=== PATIENT | male | born 1990 | race American Indian/Alaskan Native ===

== ENCOUNTER 2017-10-27 17:23 | Emergency (ER) | payer OTHER ==
[2017-10-27 18:36] VITALS: BP 151/81
--- NOTE | 2017-10-27 20:07 | XRay Report ---
FINAL REPORT PROCEDURE: XR FOOT 3+V LT TECHNIQUE: Three views the left foot are obtained HISTORY: left foot pain dropped heavy object on foot COMPARISON: No prior studies are available for comparison. FINDINGS: Soft tissue swelling is seen. There is no fracture or dislocation. No arthritic changes are seen. IMPRESSION: No fracture is seen.
== END 2017-10-27 20:55 | disposition left against medical advice (07) ==
LOC: ED 17:23
DX: M79.672 Pain in left foot (principal); Z53.21 Procedure and treatment not carried out due to patient leaving prior to being seen by health care provider

== ENCOUNTER 2018-05-27 20:31 | Emergency (ER) | payer SELFPAY ==
[2018-05-27 21:01] VITALS: BP 151/92
[2018-05-27] MEDS ORDERED: ASPIRIN PO ONE (21:01)
== END 2018-05-27 21:00 | disposition left against medical advice (07) ==
LOC: ED 20:31
DX: R42 Dizziness and giddiness (principal); Z53.21 Procedure and treatment not carried out due to patient leaving prior to being seen by health care provider

== ENCOUNTER 2022-06-19 22:43 | Emergency (ER) | payer SELFPAY ==
[2022-06-20 08:11] LABS: Basophils # (Auto) 0.1 K/mm3 (0.0-0.1); Basophils % (Auto) 0.8 % (0.0-1.8); Eosinophils # (Auto) 0.2 K/mm3 (0.0-0.4); Eosinophils % (Auto) 2.4 % (0.0-4.3); Hematocrit 54.7 % (35.5-45.6); Lymphocytes # (Auto) 2.3 K/mm3 (1.2-5.4); Lymphocytes % (Auto) 31.3 % (13.4-35.0); Mean Corpuscular HGB Conc 33 % (32-34); Mean Corpuscular Volume 86 fl (84-94); Monocytes # (Auto) 0.7 K/mm3 (0.0-0.8); Monocytes % (Auto) 9.3 % (0.0-7.3); Platelet Count 141 K/mm3 (140-440); Red Blood Count 6.34 M/mm3 (3.65-5.03); Red Cell Distribution Width 14.8 % (13.2-15.2)
[2022-06-20 08:34] LABS: Alanine Aminotransferase 20 units/L (7-56); Albumin 5.1 g/dL (3.9-5); BUN/Creatinine Ratio 7; Blood Urea Nitrogen 7 mg/dL (9-20); Calcium 10.1 mg/dL (8.4-10.2); Hemolysis Index 11
[2022-06-20] MEDS ORDERED: ONDANSETRON 4 MG ODT TAB PO ONE (08:52)
[2022-06-20] MEDS ORDERED: BUTALB/ACETAMINOPHEN/CAFFEINE TAB PO ONE (08:52)
--- NOTE | 2022-06-20 08:56 | Emergency Department Report ---
ED Psych HPI - General Chief Complaint: Medical Clearance Stated Complaint: HEADACHE/BLOOD IN URINE Source: patient Mode of arrival: Ambulatory - History of Present Illness Initial Comments: 32-year-old male history of migraines presents to the emergency department with headache and bloody urine. Patient reports he is "weaning off mildly which she has been taking while he was in the [place]". Said he has not had melena last couple of days and just wants to get it out of his system. His symptoms assoc iated with dizziness, congestion, history of migraines and his headache is not the worst headache he has [facility] experience. No vision changes, no nausea vomiting abdominal pain, no chest pain, no shortness of breath, no fever or chills. Also reports blood in his urine, started having some dysuria today. He denies penile discharge. No testicular pain, symptoms are worse with nothing and improves with nothing, patient has not tried any medications. Sexually active male, he denies history of STDs. -: Gradual, days(s) Associated Psychiatric Symptoms: none - Related Data Allergies Allergy/AdvReac Type Severity Reaction Status Date / Time No Known Allergies Allergy Unverified 10/27/17 18:36 ED Review of Systems ROS: Stated complaint: HEADACHE/BLOOD IN URINE Other details as noted in HPI Comment: All other systems reviewed and negative Constitutional: no symptoms reported. denies: chills Eyes: as per HPI ENT: as per HPI Respiratory: denies: cough, shortness of breath, SOB with exertion, wheezing Cardiovascular: denies: chest pain, palpitations, dyspnea on exertion Gastrointestinal: denies: abdominal pain, nausea, vomiting, diarrhea Genitourinary: dysuria, hematuria Musculoskeletal: denies: back pain, joint swelling Skin: denies: rash, lesions Neurological: headache. denies: weakness, numbness, paresthesias Psychiatric: denies: auditory hallucinations, visual hallucinations, homicidal thoughts, suicidal thoughts ED Past Medical Hx - Past Medical History Previous Medical History?: No - Surgical History Past Surgical History?: No - Social History Smoking Status: Current Every Day Smoker Substance Use Type: Alcohol, Other (ping) ED Physical Exam - General Limitations: No Limitations General appearance: alert, in no apparent distress - Head Head exam: Present: atraumatic - Eye Eye exam: Present: normal appearance, PERRL Pupils: Present: normal accommodation - ENT ENT exam: Present: normal exam - Neck Neck exam: Present: normal inspection. Absent: tenderness - Respiratory Respiratory exam: Present: normal lung sounds bilaterally. Absent: respiratory distress - Cardiovascular Cardiovascular Exam: Present: regular rate, normal rhythm - GI/Abdominal GI/Abdominal exam: Present: soft. Absent: distended, tenderness - Rectal Rectal exam: Present: deferred - Extremities Exam Extremities exam: Present: normal inspection, full ROM - Back Exam Back exam: Present: normal inspection, full ROM. Absent: tenderness - Neurological Exam Neurological exam: Present: alert, oriented X3, normal gait - Psychiatric Psychiatric exam: Present: normal affect, normal mood, other (Pleasant) - Skin Skin exam: Present: warm, dry, intact, normal color ED Course Vital Signs 06/19/22 06/20/22 23:53 09:11 Temperature 98.2 F 97.9 F Pulse Rate 60 72 Respiratory 18 16 Rate Blood Pressure 118/83 121/82 [Right] O2 Sat by Pulse 99 Oximetry ED Medical Decision Making - Lab Data Result diagrams: 06/20/22 07:37 06/20/22 07:37 - Medical Decision Making 32-year-old male history of migraines presents to the emergency department with headache and bloody urine. Patient reports he is "weaning off mildly which she has been taking while he was in the [place]". Said he has not had melena last couple of days and just wants to get it out of his system. His symptoms associated with dizziness, congestion, history of migraines and his headache is not the worst headache he has [facility] experience. No vision changes, no nausea vomiting abdominal pain, no chest pain, no shortness of breath, no fever or chills. Also reports blood in his urine, started having some dysuria today. He denies penile discharge. No testicular pain, symptoms are worse with nothing and improves with nothing, patient has not tried any medications. Sexually active male, he denies history of STDs. -His labs reassuring with the exception of the urinalysis which does show some red blood cells, otherwise his kidney function his BUN and creatinine within normal limit, coupled with his dysuria will treat with ceftriaxone and azithromycin, GC culture pending, outpatient referral for further evaluation of the hematuria. Otherwise patient's vital signs are stable he is afebrile he is nontoxic-appearing headache has improved, no red flags thunderclap headache or worst headache he has ever experienced. Ambulates steadily, no focal weakness. Symptoms can be managed outpatient. I discussed all of this with patient with understanding. He ambulates steadily out of the emergency department without assistance Critical care attestation.: If time is entered above; I have spent that time in minutes in the direct care of this critically ill patient, excluding procedure time. ED Disposition Clinical Impression: Nonintractable episodic headache, Hematuria, Substance use disorder Disposition: HOME / SELF CARE / HOMELESS Is pt being admited?: No Does the pt Need Aspirin: No Condition: Stable Instructions: Hematuria, Adult, Substance Use Disorder Referrals: PRIMARY CARE, [Primary Care Provider] - 3-5 Days JOSEE PAIZ MD [Staff Physician] - 3-5 Days
[2022-06-20 09:02] LABS: Amphetamine Screen,Urine Negative; Benzodiazepines Screen,Urine Negative; Cocaine Screen,Urine Negative; Methadone Screen,Urine Negative; Opiate Screen,Urine Negative
[2022-06-20 09:14] VITALS: BP 121/82
[2022-06-20 09:18] LABS: Cannabinoid Screen,Urine Positive
[2022-06-20 09:19] LABS: Mucus,Urine 2+ /HPF
[2022-06-20 09:32] LABS: Bilirubin,Urine Small (Negative); Blood,Urine Negative (Negative); Color,Urine Amber (Yellow)
[2022-06-20 09:33] LABS: PH,Urine 6.5 (5.0-7.0)
[2022-06-20 09:34] LABS: Ictotest,Urine Positive (Negative)
[2022-06-20] MEDS ORDERED: LIDOCAINE-MPF (1%) 10 MG/1 ML VIAL 5 ML INFILTRATI ONE (10:03)
[2022-06-20] MEDS ORDERED: AZITHROMYCIN 1 GM ORAL PWDR PACKET PO ONE (10:03)
== END 2022-06-20 10:47 | disposition home or self-care (01) ==
LOC: ED 22:43
DX: G44.89 Other headache syndrome (principal); R31.9 Hematuria, unspecified; F19.20 Other psychoactive substance dependence, uncomplicated
CPT/HCPCS: 36415; 80053; 80307; 81001; 85025; 87086; 96372; 99283; J0696; J3490; 80320; G0480; Q0162